=== PATIENT | male | born 1990 | race African-American/Black ===

== ENCOUNTER 2016-08-04 21:08 | Emergency (ER) | payer SELFPAY ==
[~2016-08-04] VITALS: Ht 175.3 cm; Wt 61.0 kg
[2016-08-04 21:46] VITALS: BP 108/70
== END 2016-08-05 00:57 | disposition left against medical advice (07) ==
LOC: ER 21:09
DX: Z53.21 Procedure and treatment not carried out due to patient leaving prior to being seen by health care provider (principal)